=== PATIENT | male | born 1995 | race Caucasian/White ===

== ENCOUNTER → 2016-12-19 | Outpatient (CLI) | payer OTHER ==
[~2016-12-19] MED LIST: LORA-474 PO; OMEP20TA PO
--- NOTE | 2016-12-20 10:49 | RADRPT ---
EXAM DATE/TIME: 12/19/2016 11:58 [place] COMPARISON : No previous studies available for comparison. INDICATIONS : Abdominal pain. HISTORY OF PRESENT ILLNESS: We were requested to perform a contrast angiogram of the mesenteric vessels. To assess for median arc uate ligament syndrome. The patient has a history of early satiety and abdominal pain. IMAGING STUDIES: Abdominal MRA ASSESSMENT: The patient's MRA was reviewed. This is a contrast-enhanced MRA which is of excellent diagnostic qual ity. The celiac SMA and ELVA are all clearly visualized. I do not feel a conventional contrast angiogr am would provide additional information. TIME SPENT: 15 minutes. Irvin Alvarez MD on December 20, 2016 at 10:42 Board Certified Radiologist. This report was verified electronically.
== END ==
LOC: HRAD 11:18
DX: R10.9 Unspecified abdominal pain (principal)